=== PATIENT | female | born 1975 | race Caucasian/White ===

== ENCOUNTER 2017-04-20 11:20 | Emergency (ER) | payer BC, OTHER ==
--- OUTSIDE RECORDS SUMMARY | 2017-04-20 11:50 | XMS REPORT | Continuity of Care Document ---
:1975 Author Organization [employer] [place] [address] Care Team Providers Name Role Phone Roxanna Zabala Primary Care Provider [phone] Source Comments This disclosure is being made pursuant to the [employer] program and maynot contain all information available regarding this patient.[employer] Active Allergies and Adverse Reactions Not on File Current Medications Be aware that medications may not be up to date as of this document. Alwaysverify current medications with the patient. Not on file Active Problems Not on file Immunizations Name Dates Previously Given Next Due Influenza Split 09/25/2009,09/19/2009,08/01/2009 Social History Tobacco Use Types Packs/Day Years Used Date Never Assessed Plan of Care Health Maintenance Due Date Last Done Comments Tetanus/Pertussis (1 - Tdap) 1996 Pap Smear 1998 Influenza Immunization (#1) 2016 09/25/2009, 09/19/2009, 08/01/2009 Results from Last 3 Months Not on file
[2017-04-20 11:58] LABS: Hematocrit 39.7 % (37.0-47.0); Hemoglobin 12.7 gm/dL (12.5-16.0); Mean Cell Volume 83.8 fl (78-100); Mean Corpuscular Hemoglobin 26.8 pg (27-31); Platelet Count 258 K/mm3 (150-450); Red Blood Count 4.74 M/mm3 (4.2-5.4); Red Cell Distribution Width 14.5 % (11.5-14.0); Total Cells Counted 100
--- NOTE | 2017-04-20 12:01 | ERNOTE ---
Medical Problem HPI - Narrative Date of Service: 04/20/17 - General Chief Complaint: General Assessment Time Seen by Provider: 04/20/17 11:39 Source: patient, family, other - [employer]ER report Exam Limitations: no limitations - Immun/Allergies/Home Medications Immunizations: IMMUNIZATION HX Immunizations Up to Date Yes History of Influenza Vaccine No Hx Pneumococcal Vaccination No Allergies/Adverse Reactions: Allergies No Known Allergies Allergy (Unverified 04/20/17 11:25) Home Medications: HOME MEDICATIONS Iron 04/20/17 [Last Taken Unknown] Probiotic 04/20/17 [Last Taken Unknown] Vitamin D 04/20/17 [Last Taken Unknown] - History of Present History Narrative: Pt. comes in with c/o weakness and fatigue for over a month that she has sought treatment from her PCP for and was diagnosed with iron deficient anemia and vitamin D deficiency and has been on a supplement without relief but was told that her iron stores and blood were low and red cells were six. Pt. sought care from the [facility] just prior to arrival and was sent here as the SCHOOL LEADER there felt that she may have a dangerous anemia. Pt. states that her last period was last week and it was normal for her and was not especially long or heavy. Pt. has some chronic muscle aches but denies any new pain. Pt. denies any recent illness exposure or injury. Review of Systems - Review of Systems Constitutional: Present: weakness, fatigue, malaise, decreased activity level. Absent: fever, chills, weight loss EYE: Present: no symptoms reported ENT: Present: no symptoms reported Respiratory: Present: no symptoms reported. Absent: shortness of breath, cough , wheezing Cardiology: Present: no symptoms reported. Absent: chest pain Gastrointestinal/Abdominal: Present: no symptoms reported. Absent: nausea, vomiting, diarrhea, abdominal pain Genitourinary: Present: no symptoms reported Musculoskeletal: Present: muscle pain, joint pain. Absent: back pain, neck pain Skin: Present: no symptoms reported. Absent: dryness, lesions, lumps, change in color, change in hair/nails Neurological: Present: weakness - generalized. Absent: headache, dizziness/ light-headedness All Other Systems: All systems neg except as marked - Patient's Past Medical History Patient History - Medical: Anemia Patient History - Cardiac/Respiratory: Other Patient History - Cancer: No Hx of Cancer Patient History - Surgical Procedures: Patient History - Other: None LMP (females 10-50): now - Social History Living Situations: home Abuse History: No History of abuse Psych History: No pertinent hx Smoking Status: Never smoker Alcohol Use: none Drug Use: none - Immunizations Immunizations Up to Date: Yes Hx Pneumococcal Vaccination: No History of Influenza Vaccine: No Physical Exam - Physical Exam General Appearance: Present: wd/wn, alert, no apparent distress Eye Exam: Normal inspection: bilateral, PERRL: bilateral, EOMI: bilateral Ears, Nose, Throat: Present: normal ENT inspection, normal pharynx Neck: Present: normal inspection, nontender. Absent: lymphadenopathy (R), lymphadenopathy (L) Respiratory: Present: no respiratory distress, normal breath sounds, no accessory muscle use, chest nontender, lungs clear Cardiovascular/Chest: Present: regular rate, rhythm, no murmur, normal peripheral pulses Gastrointestinal/Abdominal: Present: normal bowel sounds, nontender, nondistended, soft, no organomegaly Back Exam: Present: normal inspection, normal range of motion, no CVA tenderness , no vertebral tenderness Extremity Exam: Present: normal inspection, non-tender, normal range of motion, no edema Neurological Exam: Present: alert, oriented, no motor/sensory deficits, other - flat affect Skin Exam: Present: normal color, warm/dry. Absent: pallor, skin rash ED Progress - Date and Time Seen: Date and Time: 04/20/17 15:36 Discussed pt. nutrition at length as I feel that pt. is malnutritioned from either organic or aquired source. Also feel that pt. also has some element of depression and vasomotor dysfunction. Pt. also could have arrythmia however unlikely but will order holter monitor for pt. and have her follow up with Dr Vasquez on which the nurse has made this appointment. - Results and Orders Patient's Lab Results:: I have reviewed the patient's lab results. - Vital Signs Patient's Vital Signs:: I have reviewed the patient's vital signs. Vital Signs: Vital Signs 04/20/17 11:25 Temperature 37.4 C Pulse Rate 89 Respiratory 18 Rate Blood Pressure 113/74 O2 Sat by Pulse 100 Oximetry - EKG EKG: other - SR no acute EKG read: Reviewed by me EKG Comments: Interpreted by Dr Schmitt - Progress/Reassessment Chief Complaint: General Assessment Progress:: Unchanged Departure - Departure Clinical Impression: Vitamin D deficiency, Iron deficiency Fatigue Qualifiers: Fatigue type: chronic, unspecified Qualified Code(s): R53.82 - Chronic fatigue , unspecified Hypothyroid Qualifiers: Hypothyroidism type: unspecified Qualified Code(s): E03.9 - Hypothyroidism, unspecified Arrhythmia Qualifiers: Arrhythmia type: unspecified cardiac arrhythmia Qualified Code(s): I49.9 - Cardiac arrhythmia, unspecified Disposition: Home self-care Condition: Good Instructions: Fatigue, Hypothyroidism, Vitamin D Deficiency, Ferritin Test, Iron Level and Total Iron-Binding Capacity Tests, Palpitations, [id number], Iron-Rich Diet, Cardiac Event Monitoring, Iron Deficiency Anemia, Adult, Easy-to -Read Additional Instructions: Please follow up with Dr Vasquez at 1030 on Thursdayapril 20. Please continue iron and vitamin D Referrals: Heriberto Vasquez MD [Staff Physician] -
[2017-04-20 12:04] LABS: Urine Bilirubin Negative (NEGATIVE); Urine Blood 25 /ul (NEGATIVE); Urine Ketone Negative (NEGATIVE); Urine Nitrite Negative (NEGATIVE); Urine Protein Negative (NEGATIVE); Urine Specific Gravity <=1.005 SP.GR. (1.005-1.010); Urine Urobilinogen Normal (NORMAL)
[2017-04-20 12:06] LABS: Eosinophil 2 % (0-3); Hypochromia Trace; Lymphocyte 25 % (20-51); Monocyte 10 % (0-9); Neutrophil 63 % (42-75); Neutrophil # 2.5 K/mm3 (1.3-6.0); Platelet Estimate Normal (NORMAL)
[2017-04-20 12:08] LABS: Prothrombin Time (Patient) 10.3 Seconds (9.4-11.4)
[2017-04-20 12:13] LABS: Urine Appearance Clear; Urine Bacteria None Seen; Urine Color Pale Yellow; Urine RBC 0-5 /hpf (0-5); Urine WBC None Seen /hpf (0-5)
[2017-04-20 12:15] LABS: INR 0.99 INR (0.90-1.10)
[2017-04-20 12:27] LABS: ALT 40 U/L (19-67); AST 32 U/L (0-48); Albumin * 4.2 gm/dl (3.4-5.0); Alkaline Phosphatase * 57 U/L (50-170); Anion Gap 12.2 mmol/L (6.8-13.8); Bilirubin, Total 0.5 mg/dL (0.0-1.1); Blood Urea Nitrogen 11 mg/dL (3-23); Ca. Corrected For Albumin 8.9 mg/dL (8.4-10.2); Calcium * 9.4 mg/dL (7.9-10.9); Carbon Dioxide 30.1 mmol/L (24-32.6); Chloride 104 mmol/L (97-106); Glucose * 106 mg/dL (70-110); Potassium 4.3 mmol/L (3.4-4.6); Sodium 142 mmol/L (132-142); TSH * 4.078 uIU/mL (0.358-3.74); Total Protein 8.1 gm/dL (6.2-8.2); Troponin I Less than 0.017 ng/ml (0.00-0.10)
[2017-04-20 15:00] VITALS: BP 118/73
== END 2017-04-20 14:25 | disposition home or self-care (01) ==
LOC: ER 11:20
DX: E55.9 Vitamin D deficiency, unspecified (principal); E61.1 Iron deficiency; R53.82 Chronic fatigue, unspecified; E03.9 Hypothyroidism, unspecified; I49.9 Cardiac arrhythmia, unspecified

== ENCOUNTER 2019-11-02 16:51 | Observation (INO) ==
[2019-11-02] MEDS ORDERED: KETOROLAC TROMETHAMINE 30 MG/ML VIAL IV ONE (17:12)
[2019-11-02] MEDS ORDERED: DIATRIZOATE MEGLUMINE, SODIUM 30 ML BTL PO ONE (17:15)
--- NOTE | 2019-11-02 17:23 | ERNOTE ---
Abdominal HPI - Narrative Date of Service: 11/02/19 - General Chief Complaint: Abdominal Pain Time Seen by Provider: 11/02/19 17:08 Source: patient Exam Limitations: no limitations - Immun/Allergies/Home Medications Immunizatons: IMMUNIZATION HX Immunizations Up to Date Yes History of Influenza Vaccine No Hx Pneumococcal Vaccination No Allergies/Adverse Reactions: Allergies adhesive Adverse Reaction (Mild, Verified 10/19/19 07:22) BANDAIDS CAUSE RASH Home Medications: HOME MEDICATIONS Ferrous Sulfate [Iron] 325 mg PO DAILY 12/15/17 [Last Taken 10/18/19] Multivitamins [Multivitamin Crsytal] 1 cap PO DAILY 12/15/17 [Last Taken Unknown] Kiron-3/Dha/Epa/Fish Oil [Fish Oil 500 mg Softgel] 1 ea PO DAILY 12/15/17 [Last Taken Unknown] pyridoxine (vitamin B6) 250 mg tablet 250 mg PO DAILY 08/15/19 [Last Taken 10/18/19] Ascorbic Acid [Vitamin C] 1,000 mg PO DAILY 10/19/19 [Last Taken 10/18/19] Calcium Carbonate [Calcium] 500 mg PO DAILY 10/19/19 [Last Taken Unknown] Estradiol [Climara] 0.1 mg TD Q7D 28 Days #4 patch.tdwk 10/19/19 [Last Taken Unknown] Ibuprofen [Motrin] 200 - 800 mg PO Q6H PRN #100 tab 10/19/19 [Last Taken Unknown] Loratadine [Allergy Relief] 10 mg PO DAILY PRN 10/19/19 [Last Taken 10/18/19] Thyroid,Pork [Nature-Throid] 32.5 mg PO BID 10/19/19 [Last Taken 10/18/19] guaiFENesin [Guaifenesin ER] 600 mg PO BID PRN 10/19/19 [Last Taken 10/18/19] Amox Tr/Potassium Clavulanate [Augmentin 875-125 Tablet] 875 mg PO Q12H #20 tab 10/31/19 [Last Taken Unknown] - Pain Score Pain Score #1 Pain Score: 8 Abdominal Pain Onset Location: other - pelvic Pain Radiation: no radiation - History of Present Illness Narrative: The patient is a 44 year old female who presents for pelvic pain which has been present for several day with worsening pain today. There are associated symptoms of fever, chills, diaphoresis and nausea. The patient reports pelvic pain, 8/10. There are no alleviating factors. There are aggravating factors of activity. Previous treatments have included: current treatment with Augmentin without improvement. The past medical history includes: anemia, GERD, IBS and endometriosis. The social history is negative. The patient has had no ill contacts. Patient was recently seen in ER with dx of abscess near vaginal cuff. Patient was treated with antibiotics after consult with and was to follow up with on Thursday. Review of Systems - Review of Systems Constitutional: Present: fever, chills, diaphoresis, fatigue EYE: Present: no symptoms reported ENT: Present: no symptoms reported. Absent: ear pain, nasal drainage, sore throat Respiratory: Present: no symptoms reported. Absent: shortness of breath, cough Cardiology: Present: no symptoms reported. Absent: chest pain Gastrointestinal/Abdominal: Present: nausea, abdominal pain. Absent: vomiting, diarrhea Genitourinary: Absent: dysuria, discharge Musculoskeletal: Present: no symptoms reported Skin: Present: no symptoms reported. Absent: rash All Other Systems: All systems neg except as marked Medical History (Last Reviewed 11/02/19 @ 17:18 by RHONDA Jang) Cyst of breast, left, solitary (Acute) complex cyst at 6 o'clock found on mammogram and u/s on 09/29/19. Scheduled for biopsy mid September. Premenstrual syndrome (Acute) Dysmenorrhea (Acute) Ovarian cyst (Acute) suspicious for dermoid Anemia Onset Date: 01/03/13 Body piercing Onset Date: Unknown GERD (gastroesophageal reflux disease) Onset Date: Unknown Irritable bowel syndrome (IBS) Onset Date: Unknown Seasonal allergies Onset Date: Unknown Adenomyosis Onset Date: 10/19/19 Breast lump in female Onset Date: ~2002 Mammogram showed benign results Endometriosis Onset Date: 10/19/19 left ovary Heart murmur Onset Date: Unknown as a child; resolved Leiomyoma Onset Date: 10/19/19 Mononucleosis Onset Date: ~2003 Surgical History: Surgical History (Last Reviewed 11/02/19 @ 17:18 by RHONDA Jang) History of endometrial biopsy Onset Date: 10/06/19 No atypia or malignant neoplasia identified. Dermoid cyst Onset Date: ~12/2017 right-removed H/O bilateral salpingectomy Onset Date: ~12/2017 Pt unsure if bilateral or unilateral History of cystoscopy Onset Date: 10/19/19 History of laparoscopic-assisted vaginal hysterectomy Onset Date: 10/19/19 History of left salpingo-oophorectomy Onset Date: 10/19/19 Hx of ovarian cystectomy Onset Date: ~12/2017 Right Previous section Onset Date: 06/18/00 Failure to descend [place] teeth extracted Onset Date: Unknown high school Family History: Family History (Last Reviewed 11/02/19 @ 17:18 by RHONDA Jang) Mother Seizures Diabetes History of brain surgery Cancer endometrial Father Hypertension Sister History of gestational diabetes Grandmother Diabetes Cancer Breast Grandfather Cancer prostate & bone Grandfather Heart disease Aunt Cancer Breast Thyroid disease Social History: (Last Reviewed 11/02/19 @ 17:18 by RHONDA Jang) Social History: adopted: No assisted: No Marital status: household members: spouse, children number of children: 4 current occupational status: other current occupational exposures/hazards: No Highest education level completed: high school graduate Service: No Tobacco: Smoking Status: Never smoker Alcohol: alcohol intake: never Substance Use: substance use type: does not use Dietary Habits: caffeine: Yes caffeine comment: 1/day Exercise: frequency: 1-2 times per week Physical Exam - Physical Exam General Appearance: Present: wd/wn, alert, moderate distress Head Exam: Present: normal inspection Eye Exam: Normal inspection: bilateral Neck: Present: normal inspection Respiratory: Present: no respiratory distress, normal breath sounds, no accessory muscle use, lungs clear Cardiovascular/Chest: Present: no murmur, tachycardia Gastrointestinal/Abdominal: Present: normal bowel sounds, nondistended, soft, no organomegaly, tenderness - LLQ and suprapubic, moderate, guarding - suprapubic. Absent: mass Neurological Exam: Present: alert, oriented, normal mood/affect, no motor/sensory deficits Skin Exam: Present: normal color, diaphoresis Progress - Date and Time Seen: Date and Time: 11/02/19 17:23 contacted regarding patient condition and representation to ER, instructed to repeat CT. Patient informed and will proceed with testing. 11/02/19 20:[address] with , admit for observation for IV atb. Revie wed plan of care with patient and agrees to plan. - Results and Orders Patient's Lab Results:: I have reviewed the patient's lab results. - Vital Signs Patient's Vital Signs:: I have reviewed the patient's vital signs. Vital Signs: Vital Signs 11/02/19 16:59 Temperature 37.0 C Pulse Rate 105 H Respiratory Rate 18 Blood Pressure 123/72 O2 Sat by Pulse Oximetry 98 - CT/Ultrasound CT/Ultrasound Narrative: IMPRESSION: 1. Persistence of previously noted single crescentic fluid collection versus 2 separate fluid collections in the pelvis, closely associated with the vaginal cuff as discussed above and also discussed previously, suggestive of either hematomas versus abscesses. Right-sided fluid may be slightly larger. There is interval development of gas within the right-sided fluid collection as discussed above. Correlate clinically with recent instrumentation or pelvic exam. Otherwise, consider possible gas from infection/abscess, versus less likely but possible gas related to possible fistula with the adjacent GI tract. 2. There is symmetric excretion of contrast material from the kidneys, however the bladder and the distal ureteral segments are not opacified and therefore it would be difficult to exclude potential ureteral injury. If there is a clinical concern for possible ureteral injury, consider urology consultation. 3. Additional comments and details are as above. Ordering provider RHONDA Jang was informed regarding the above results by telephone on 11/02/2019 8:36 PM. - Progress/Reassessment Chief Complaint: Abdominal Pain Progress:: Improved - slightly, 5-6/10 after Toradol and position Departure Clinical Impression: Failure of outpatient treatment, Postoperative abscess - Departure Disposition: Still a patient Condition: Stable
[2019-11-02 17:24] LABS: Hematocrit 39.7 % (37.0-47.0); Hemoglobin 13.4 gm/dL (12.5-16.0); Mean Corpuscular Hemoglobin 29.7 pg (27-31); Mean Corpuscular Hgb Conc 33.8 g/dl (32-36); Mean Platelet Volume 9.5 fl (8-12.5); Neutrophil # 9.1 K/mm3 (1.3-6.0); Neutrophil % 82.8 % (42-75.0); Platelet Count 286 K/mm3 (150-450); Red Blood Count 4.51 M/mm3 (4.2-5.4); Red Cell Distribution Width 13.4 % (11.5-14.0)
[2019-11-02] MEDS ORDERED: ONDANSETRON HCL/PF 2 MG/ML VIAL IV ONE (17:25)
[2019-11-02 17:36] LABS: Albumin * 3.6 gm/dl (3.4-5.0); Anion Gap 11.9 mmol/L (6.8-13.8); BUN/Creatinine Ratio 11.3 (9.0-21.6); Bilirubin, Total 0.3 mg/dL (0.0-1.1); CRP 4.6 mg/dL (0.0-0.9); Ca. Corrected For Albumin 9.2 mg/dL (8.4-10.2); Calcium * 9.2 mg/dL (7.9-10.9); Carbon Dioxide 29.2 mmol/L (24-32.6); Potassium 4.1 mmol/L (3.4-4.6)
[2019-11-02 19:07] LABS: Urine Bilirubin Negative (NEGATIVE); Urine Blood 250 /ul (NEGATIVE); Urine Ketone 15 mg/dL (NEGATIVE); Urine Nitrite Negative (NEGATIVE); Urine Protein 15 mg/dL (NEGATIVE); Urine Urobilinogen Normal (NORMAL); Urine pH 6.5 pH (5.0-7.0)
[2019-11-02 19:21] LABS: Urine Appearance Cloudy (CLEAR); Urine Bacteria 3+; Urine Color Yellow; Urine Mucus Few - 1+; Urine RBC 0-5 /hpf (0-5); Urine Renal Epithelial Cell Few - 1+ /hpf; Urine WBC 25-50 /hpf (0-5)
[2019-11-02] MEDS ORDERED: MORPHINE SULFATE 2 MG/ML DISP.SYRIN IV PRN (21:47)
[2019-11-02] MEDS ORDERED: ONDANSETRON 4 MG TAB.RAPDIS PO PRN (21:47)
[2019-11-02] MEDS: HYDROcodone/ACETAMINOPHEN 1 EACH TABLET PO PRN (22:30)
[2019-11-02] MEDS: RINGER'S SOLUTION,LACTATED 1,000 ML IV PRN (22:31)
[2019-11-02] MEDS: AMPICILLIN SODIUM 2,000 MG in NORMAL SALINE 100 ML IV SCH (22:56)
[2019-11-02] MEDS: CLINDAMYCIN PHOSPHATE 900 MG in DEXTROSE 5 % IN WATER 100 ML IV SCH ×2 (23:32)
[2019-11-03] MEDS: GENTAMICIN SULFATE 100 MG in DEXTROSE 5 % IN WATER 100 ML IV SCH ×8 (00:07→23:13)
[2019-11-03] MEDS: HYDROcodone/ACETAMINOPHEN 1 EACH TABLET PO PRN (01:29)
[2019-11-03] MEDS: AMPICILLIN SODIUM 2,000 MG in NORMAL SALINE 100 ML IV SCH ×4 (03:49→22:35)
[2019-11-03] MEDS: CLINDAMYCIN PHOSPHATE 900 MG in DEXTROSE 5 % IN WATER 100 ML IV SCH ×6 (05:46→21:52)
[2019-11-03] MEDS: RINGER'S SOLUTION,LACTATED 1,000 ML IV PRN (05:58)
--- NOTE | 2019-11-03 08:46 | HP ---
Chief Complaint - Chief Complaint Date of Service: 11/03/19 Time of Service: 08:46 Chief Complaint: Abdominal pain History of Present Illness: 44 year old s/p LAVH, left oophorectomy and cystoscopy on 10/19/2019 so she is now approximately 2 weeks post-op. She initially reported abdominal pain on 10/29/2019 and a low grade temperature of 99 Fahrenheit. At that time the patient was instructed to present to her nearest emergency department as she was out of town. She presented to the ED and was diagnosed with a UTI. She was given an Rx for levaquin and the patient did not feel comfortable taking levaquin because she has a history of several family members that have had adverse reactions to levaquin. The patient was then switched to macrobid 100mg PO BID for 7 days. The patient then called back on Thursday10/31/2019 still having pain and with persistent low grade temperatures. She was again instructed to present to the emergency department. At that time she had a CBC that showed a WBC count of 12.5 and also elevated CRP. Due to these findings a CT A/P was ordered that showed a hematoma versus pelvic abscess. The patient was afebrile in the emergency department. The patient was given a dose of IV Rocephin in the emergency department. She was discharged on a 10 day course of augmentin and she was advised to stop her macrobid. On 11/02/19 the patient called with now increasing abdominal pain, a higher low grade temperature of 100, and also chills. Again she was advised to present to the emergency department and the CT abdomen/pelvis was repeated to rule out an occult bowel injury and to follow-up the size of the hematomas versus fluid collections. The patient's CBC and CRP were decreased, she was afebrile, but the CT showed a potential increase in one of the fluid collections. The patient was then admitted since she failed outpatient antibiotic therapy. The patient's abdominal pain ranged from a 6-8/10 yesterday and this morning her abdominal pain is 1/10. She is afebrile. She denies nausea and diaphoresis. Medical History (Last Reviewed 11/03/19 @ 09:07 by Pao Moncada MD) Cyst of breast, left, solitary (Acute) complex cyst at 6 o'clock found on mammogram and u/s on 10/31/19. Scheduled for biopsy mid September. Premenstrual syndrome (Acute) Dysmenorrhea (Acute) Ovarian cyst (Acute) suspicious for dermoid Anemia Onset Date: 01/03/13 Body piercing Onset Date: Unknown GERD (gastroesophageal reflux disease) Onset Date: Unknown Irritable bowel syndrome (IBS) Onset Date: Unknown Seasonal allergies Onset Date: Unknown Adenomyosis Onset Date: 10/19/19 Breast lump in female Onset Date: ~2002 Mammogram showed benign results Endometriosis Onset Date: 10/19/19 left ovary Heart murmur Onset Date: Unknown as a child; resolved Leiomyoma Onset Date: 10/19/19 Mononucleosis Onset Date: ~2003 Surgical History: Surgical History (Last Reviewed 11/03/19 @ 09:07 by Pao Moncada MD) History of endometrial biopsy Onset Date: 10/06/19 No atypia or malignant neoplasia identified. Dermoid cyst Onset Date: ~12/2017 right-removed H/O bilateral salpingectomy Onset Date: ~12/2017 Pt unsure if bilateral or unilateral History of cystoscopy Onset Date: 10/19/19 History of laparoscopic-assisted vaginal hysterectomy Onset Date: 10/19/19 History of left salpingo-oophorectomy Onset Date: 10/19/19 Hx of ovarian cystectomy Onset Date: ~12/2017 Right Previous section Onset Date: 06/18/00 Failure to descend [place] teeth extracted Onset Date: Unknown high school Family History: Family History (Last Reviewed 11/03/19 @ 09:07 by Pao Moncada MD) Mother Seizures Diabetes History of brain surgery Cancer endometrial Father Hypertension Sister History of gestational diabetes Grandmother Diabetes Cancer Breast Grandfather Cancer prostate & bone Grandfather Heart disease Aunt Cancer Breast Thyroid disease Social History: (Last Reviewed 11/03/19 @ 09:07 by Pao Moncada MD) Social History: adopted: No mcfp: No Marital status: household members: spouse, children number of children: 4 current occupational status: other current occupational exposures/hazards: No Highest education level completed: high school graduate Service: No Tobacco: Smoking Status: Never smoker Alcohol: alcohol intake: never Substance Use: substance use type: does not use Dietary Habits: caffeine: Yes caffeine comment: 1/day Exercise: frequency: 1-2 times per week Review Of Systems (GEN) - Review of Systems Generalized/Overall Review: Absent: Chills, Fever, Diaphoresis EENTM: Present: No Symptoms Reported Respiratory: Present: No Symptoms Reported Cardiac: Present: No Symptoms Reported Abdominal: Absent: Nausea, Vomiting, Abdominal Pain, Diarrhea Genitourinary: Present: No Symptoms Reported Musculoskeletal: Present: No Symptoms Reported Neurological: Present: No Symptoms Reported Skin: Absent: Change in Color Endocrine: Absent: [place] Misc: All systems neg except as marked Immunizations: IMMUNIZATION HX Immunizations Up to Date Yes History of Influenza Vaccine No Hx Pneumococcal Vaccination No Allergies/Adverse Reactions: Allergies Allergy/AdvReac Type Severity Reaction Status Date / Time adhesive AdvReac Mild BANDAIDS Verified 11/02/19 21:47 CAUSE RASH Home Medications: HOME MEDICATIONS Ferrous Sulfate [Iron] 325 mg PO DAILY 12/15/17 [Last Taken 10/18/19] Multivitamins [Multivitamin Crystal] 1 cap PO DAILY 12/15/17 [Last Taken Unknown] [place]-3/Dha/Epa/Fish Oil [Fish Oil 500 mg Softgel] 1 ea PO DAILY 12/15/17 [Last Taken Unknown] pyridoxine (vitamin B6) 250 mg tablet 250 mg PO DAILY 08/15/19 [Last Taken 10/18/19] Ascorbic Acid [Vitamin C] 1,000 mg PO DAILY 10/19/19 [Last Taken 10/18/19] Calcium Carbonate [Calcium] 500 mg PO DAILY 10/19/19 [Last Taken Unknown] Estradiol [Climara] 0.1 mg TD Q7D 28 Days #4 patch.tdwk 10/19/19 [Last Taken Unknown] Ibuprofen [Motrin] 200 - 800 mg PO Q6H PRN #100 tab 10/19/19 [Last Taken Unknown] Loratadine [Allergy Relief] 10 mg PO DAILY PRN 10/19/19 [Last Taken 10/18/19] Thyroid,Pork [Nature-Throid] 32.5 mg PO BID 10/19/19 [Last Taken 10/18/19] guaiFENesin [Guaifenesin ER] 600 mg PO BID PRN 10/19/19 [Last Taken 10/18/19] Amox Tr/Potassium Clavulanate [Augmentin 875-125 Tablet] 875 mg PO Q12H #20 tab 10/31/19 [Last Taken Unknown] Exam - Exam Vital Signs: Vital Signs - Last Taken Temp 37.1 C 11/03/19 06:00 Pulse 84 11/03/19 06:00 Resp 16 11/03/19 06:00 BP 92/48 11/03/19 06:00 Pulse Ox 98 11/03/19 06:00 Constitutional: Present: Alert, Oriented x3, Cooperative, No distress ENT Exam: Present: hearing grossly normal Respiratory: Present: lungs clear, normal breath sounds Cardiovascular/Chest: Present: regular rate, rhythm, no murmur Abdomen: Present: soft, nontender, nondistended Extremity: Present: non-tender, no calf tenderness Skin Exam: Present: normal color, warm/dry, no cyanosis Appearance: Present: appropriate appearance Eye contact: Present: cooperative Thoughts: Present: normal thought pattern Diagnostic Studies: Abnormal Lab Results 11/02/19 11/02/19 11/02/19 Range/Units 17:15 17:15 18:44 WBC 11.0 H (4.0-10.5) K/mm3 Immature Gran # (Auto) 0.04 H (0.000-0.0310) K/mm3 Neutrophils % 82.8 H (42-75.0) % Lymphocytes % 9.3 L (20-51) % Neutrophils # 9.1 H (1.3-6.0) K/mm3 Lymphocytes # 1.02 L (1.5-3.5) k/mm3 C-Reactive Prot, Quant 4.6 H (0.0-0.9) mg/dL Urine Protein 15 H (NEGATIVE) mg/dL Urine Blood 250 H (NEGATIVE) /ul Ur Leukocyte Esterase 100 H (NEGATIVE) /ul Urine WBC 25-50 H (0-5) /hpf Ur Renal Epithelial Cell Few - 1+ H (NONE) /hpf Urine Bacteria 3+ H (NONE) Urine Mucus Few - 1+ H (NONE) Laboratory Results WBC 11.0 K/mm3 (4.0-10.5) H 11/02/19 17:15 RBC 4.51 M/mm3 (4.2-5.4) 11/02/19 17:15 Hgb 13.4 gm/dL (12.5-16.0) 11/02/19 17:15 Hct 39.7 % (37.0-47.0) 11/02/19 17:15 MCV 88.0 fl (78-100) 11/02/19 17:15 MCH 29.7 pg (27-31) 11/02/19 17:15 MCHC 33.8 g/dl (32-36) 11/02/19 17:15 RDW 13.4 % (11.5-14.0) 11/02/19 17:15 Plt Count 286 K/mm3 (150-450) 11/02/19 17:15 MPV 9.5 fl (8-12.5) 11/02/19 17:15 Immature Gran % (Auto) 0.40 % (0.001-0.429) 11/02/19 17:15 Immature Gran # (Auto) 0.04 K/mm3 (0.000-0.0310) H 11/02/19 17:15 Neutrophils % 82.8 % (42-75.0) H 11/02/19 17:15 Lymphocytes % 9.3 % (20-51) L 11/02/19 17:15 Monocytes % 6.6 % (0.0-9) 11/02/19 17:15 Eosinophils % 0.7 % (0.0-3.0) 11/02/19 17:15 Basophils % 0.2 % (0.0-1.0) 11/02/19 17:15 Nucleated RBC % 0.0 k/mm3 (0-1) 11/02/19 17:15 Neutrophils # 9.1 K/mm3 (1.3-6.0) H 11/02/19 17:15 Lymphocytes # 1.02 k/mm3 (1.5-3.5) L 11/02/19 17:15 Monocytes # 0.7 k/mm3 (0.0-1.0) 11/02/19 17:15 Eosinophils # 0.1 k/mm3 (0.0-0.7) 11/02/19 17:15 Absolute Basophils 0.0 k/mm3 (0.0-0.1) 11/02/19 17:15 Sodium 138 mmol/L (132-142) 11/02/19 17:15 Plasma Sodium 138 mmol/L (130-142) 11/02/19 17:15 Potassium 4.1 mmol/L (3.4-4.6) 11/02/19 17:15 Chloride 101 mmol/L (97-106) 11/02/19 17:15 Carbon Dioxide 29.2 mmol/L (24-32.6) 11/02/19 17:15 Anion Gap 11.9 mmol/L (6.8-13.8) 11/02/19 17:15 BUN 8 mg/dL (3-23) 11/02/19 17:15 Creatinine 0.71 mg/dL (0.4-1.4) 11/02/19 17:15 Est GFR (Non-Af Amer) 96 mL/min (60-130) 11/02/19 17:15 BUN/Creatinine Ratio 11.3 (9.0-21.6) 11/02/19 17:15 Random Glucose 102 mg/dL (70-110) 11/02/19 17:15 Lactic Acid, Venous 0.7 mmol/L (0.4-2.0) 11/02/19 17:15 Calcium 9.2 mg/dL (7.9-10.9) 11/02/19 17:15 Calcium Adj for Albumin 9.2 mg/dL (8.4-10.2) 11/02/19 17:15 Total Bilirubin 0.3 mg/dL (0.0-1.1) 11/02/19 17:15 AST 17 U/L (0-48) 11/02/19 17:15 ALT 27 U/L (19-67) 11/02/19 17:15 Alkaline Phosphatase 97 U/L (50-170) 11/02/19 17:15 C-Reactive Prot, Quant 4.6 mg/dL (0.0-0.9) H 11/02/19 17:15 Total Protein 8.0 gm/dL (6.2-8.2) 11/02/19 17:15 Albumin 3.6 gm/dl (3.4-5.0) 11/02/19 17:15 Urine Color Yellow 11/02/19 18:44 Urine Appearance Cloudy (CLEAR) 11/02/19 18:44 Urine pH 6.5 pH (5.0-7.0) 11/02/19 18:44 Ur Specific [place] 1.010 SP.GR. (1.005-1.010) 11/02/19 18:44 Urine Protein 15 mg/dL (NEGATIVE) H 11/02/19 18:44 Urine Glucose (UA) Negative mg/dL (NEGATIVE) 11/02/19 18:44 Urine Ketones 15 mg/dL (NEGATIVE) 11/02/19 18:44 Urine Blood 250 /ul (NEGATIVE) H 11/02/19 18:44 Urine Nitrate Negative (NEGATIVE) 11/02/19 18:44 Urine Bilirubin Negative mg/dl (NEGATIVE) 11/02/19 18:44 Prot Sulfosalicylic Acd 1+ mg/dL (0) 11/02/19 18:44 Urine Urobilinogen Normal EU/dl (NORMAL) 11/02/19 18:44 Ur Leukocyte Esterase 100 /ul (NEGATIVE) H 11/02/19 18:44 Urine RBC 0-5 /hpf (0-5) 11/02/19 18:44 Urine WBC 25-50 /hpf (0-5) H 11/02/19 18:44 Ur Epithelial Cells None seen /hpf (0-5) 11/02/19 18:44 Ur Renal Epithelial Cell Few - 1+ /hpf (NONE) H 11/02/19 18:44 Urine Bacteria 3+ (NONE) H 11/02/19 18:44 Urine Mucus Few - 1+ (NONE) H 11/02/19 18:44 Urine Culture Comments Culture to follow 11/02/19 18:44 Assessment/Plan - Narrative Narrative: 44 year old approximately 2 weeks postoperative from a hysterectomy with a pelvic abscess The patient is on triple antibiotics: ampicillin/gentamicin/clindamycin. Afebrile. Abdominal pain improved. Continue IV antibiotics for 24 hours. If the patient continues to be improved will be discharged on antibiotics for 14 days. If no improvement will consider drainage of vaginal cuff abscess. Cultures not obtained as these are polymicrobial infections and cultures are not helpful Probiotics ordered per patient request Plan of care discussed with the patient and her spouse - Assessment/Plan (1) Failure of outpatient treatment Problem: Acute (2) Postoperative abscess Problem: Acute
[2019-11-03] MEDS: SACCHAROMYCES BOULARDII 250 MG CAPSULE PO SCH ×2 (09:51→21:51)
[2019-11-03] MEDS ORDERED: ACETAMINOPHEN 500 MG TABLET PO PRN (16:52)
[2019-11-04] MEDS: AMPICILLIN SODIUM 2,000 MG in NORMAL SALINE 100 ML IV SCH ×3 (03:19→16:03)
[2019-11-04] MEDS: CLINDAMYCIN PHOSPHATE 900 MG in DEXTROSE 5 % IN WATER 100 ML IV SCH ×4 (05:59→14:35)
[2019-11-04] MEDS: GENTAMICIN SULFATE 100 MG in DEXTROSE 5 % IN WATER 100 ML IV SCH ×4 (06:48→16:03)
[2019-11-04] MEDS: SACCHAROMYCES BOULARDII 250 MG CAPSULE PO SCH (08:56)
--- NOTE | 2019-11-04 13:29 | PN ---
Subjective - Date and Time Seen Date: 11/04/19 Time: 13:20 Subjective Narrative: Patient states she has been feeling worse this past few days than she did the first few days after surgery in general. She has had a couple episodes of the RLQ pelvic pain over the past 24 hours which she rates as 8/10, but has not required narcotics (even refused last pm). She currently has minimal pain, no N/V/F/C. No pain with bowel or bladder functions today, only a pressure/pulling sensation when bladder full. Objective - Review of Systems Generalized/Overall Review: Reports: Weakness, Fatigue EENTM: Reports: No Symptoms Reported Respiratory: Reports: No Symptoms Reported Cardiac: Reports: No Symptoms Reported Abdominal: Reports: Other - See above Genitourinary Symptoms: Reports: Other - Minor vaginal spotting. Denies foul smelling or purulent d/c, no vaginal pain. Musculoskeletal Complaints: Reports: No Symptoms Reported Neurological: Reports: Headache - a couple times over the past 2 days - non at present. Skin: Reports: No Symptoms Reported Endocrine: Reports: No Symptoms Reported - Vitals Vitals: Last Vital Signs Temp 37.1 C 11/04/19 11:00 Pulse 73 11/04/19 11:00 Resp 12 11/04/19 11:00 BP 110/50 11/04/19 11:00 Pulse Ox 97 11/04/19 11:00 - Exam Constitutional: Present: Alert, Oriented x3, Cooperative, No distress Breasts: Present: Exam deferred Respiratory: Present: no respiratory distress Cardiovascular/Chest: Present: regular rate, rhythm, no edema Abdomen: Present: Normal bowel sounds, soft, nondistended, no rebound tenderness, tender - Mild RLQ tenderness with deep palpation /Rectal: Present: Other - vagina pink, moist, NT, no erythema, good support. Cuff NT, intact, no erythema.. Absent: discharge Extremity: Present: non-tender, no pedal edema, no calf tenderness Skin Exam: Present: normal color, warm/dry, no cyanosis Lymphatic: Present: no adenopathy Neurologic: Present: normal mood/affect, oriented x 3 Appearance: Present: appropriate appearance, appropriate insight, no memory impairment Eye contact: Present: cooperative, good eye contact, normal speech Thoughts: Present: normal mood /affect, other - Tends to dwell on negative and repeat the same/similar questions over frequently. Assessment/Plan - Problems/Diagnosis (1) Postoperative lower abdominal pain Problem: Resolved Narrative: Intermittent waves of right lower quadrant pelvic pain probably due to movement of bowel and/or bladder irritating vaginal cuff hematoma. Patient not requiring narcotic medication. Pain is well controlled with Tylenol and Motrin. Instructed patient and spouse on necessity of light activity, avoiding heavy lifting, or strenuous activity. Reiterated nothing in the vagina until 4-week checkup in office. (2) Postoperative hematoma involving genitourinary system following genitourinary procedure Problem: Acute Narrative: Successful drainage of vaginal cuff hematoma. We will DC IV antibiotics. Recheck CBC and discharge patient home on oral antibiotics as a precautionary measure after partially opening the vaginal cuff.
[2019-11-04 13:31] LABS: Hematocrit 35.9 % (37.0-47.0); Hemoglobin 12.3 gm/dL (12.5-16.0); Mean Cell Volume 88.2 fl (78-100); Mean Corpuscular Hemoglobin 30.2 pg (27-31); Mean Corpuscular Hgb Conc 34.3 g/dl (32-36); Mean Platelet Volume 9.6 fl (8-12.5); Neutrophil # 5.5 K/mm3 (1.3-6.0); Neutrophil % 76.4 % (42-75.0); Platelet Count 291 K/mm3 (150-450); Red Blood Count 4.07 M/mm3 (4.2-5.4); Red Cell Distribution Width 13.2 % (11.5-14.0); White Blood Count 7.2 K/mm3 (4.0-10.5)
--- NOTE | 2019-11-04 16:34 | PROC NOTE ---
ED Procedures - Incision and Drainage Progerss: DATE OF PROCEDURE: 11/04/2019 INDICATION: Vaginal cuff fluid collection noted on CT scan. PREOPERATIVE DIAGNOSIS: Vaginal cuff hematoma. POSTOPERATIVE DIAGNOSIS: [Same] PROCEDURE: Transvaginal drainage of vaginal cuff hematoma SURGEON: Monica Blas D.O. AGRICULTURAL RESEARCH TECHNOLOGIST: [None] ANESTHESIA: None ESTIMATED BLOOD LOSS: 2 mL FINDINGS:The vaginal epithelium and cuff was pink, nontender, with no odor or purulent drainage. There was scant blood in the vault. SPECIMEN(S): None TECHNIQUE: Patient was taken to the hospital office exam table where she was placed in dorsal lithotomy position. The vaginal cuff was visualized with a speculum with findings as noted above. The tip of Metzenbaum scissors was inserted approximately 1-2 cm into the vaginal cuff and gently spread on both the right and left side. Approximately 1-2 mL of bright red blood drained from the right side with less than 1 mL draining from the left side. Transvaginal ultrasound was then performed noting less than 1 cm of fluid collection above the vaginal vault on the right side. Minimal spotting was noted after opening the corners of the vaginal cuff. DISPOSITION: The patient tolerated the procedure well and was transferred back to her room in good condition.
--- NOTE | 2019-11-04 16:43 | PN ---
Subjective - Date and Time Seen Date: 11/04/19 Time: 16:40 Subjective Narrative: Patient doing well 5 hours after draining vaginal cuff hematoma. Denies nausea, vomiting, fever, chills, or pain. Objective - Vitals Vitals: Last Vital Signs Temp 37.1 C 11/04/19 11:00 Pulse 73 11/04/19 11:00 Resp 12 11/04/19 11:00 BP 110/50 11/04/19 11:00 Pulse Ox 97 11/04/19 11:00 - Abnormal Lab Findings Abnormal Lab Findings: Abnormal Lab Results 11/04/19 Range/Units 13:21 RBC 4.07 L (4.2-5.4) M/mm3 Hgb 12.3 L (12.5-16.0) gm/dL Hct 35.9 L (37.0-47.0) % Neutrophils % 76.4 H (42-75.0) % Lymphocytes % 13.1 L (20-51) % Lymphocytes # 0.94 L (1.5-3.5) k/mm3 - Exam Constitutional: Present: Alert, Oriented x3, Cooperative Abdomen: Present: soft, nondistended, no rebound tenderness Extremity: Present: no pedal edema, no calf tenderness Assessment/Plan Plan Narrative: We will discharge patient home on oral antibiotics as a preventative measure after opening the vaginal cuff. Patient instructed to call for return of abdominal pain, nausea, fever, chills, or any significant change in her condition. - Problems/Diagnosis (1) Postoperative lower abdominal pain Problem: Resolved (2) Postoperative hematoma involving genitourinary system following genitourinary procedure Problem: Acute
--- NOTE | 2019-11-04 16:46 | DS ---
(1) Postoperative lower abdominal pain Problem: Resolved (2) Postoperative hematoma involving genitourinary system following genitou rinary procedure Problem: Acute Date of Discharge:: 11/04/19 Description of Stay: Patient was admitted to the hospital for 23-hour observation and IV antibiotics for presumed post hysterectomy pelvic abscess. Patient had a mildly elevated white count of 11 with left shift. Patient never had a temperature above 99 C. She never had any vaginal odor or discharge other than scant bleeding. She received 4 doses of IV clindamycin, 5 doses of IV gentamicin, and 6 doses of IV ampicillin. She had 2 doses of [place] 5/325 upon admission but none since then. She tolerated regular diet, ambulated without difficulty, and exhibited no signs of acute abdomen throughout her hospital stay. After undergoing drainage of vag inal cuff hematoma patient was observed for several hours and discharged to home with instructions to call for signs or symptoms of acute abdomen or any significant change in her medical condition. CT scan showed a left pulmonary nodule which most likely was artifact. Radiology recommended a chest x-ray to assure no pulmonary lesion. Since patient already had a chest x-ray done at her ER visit several days ago, recommend follow-up with primary care provider to assure no lesion was seen on that chest x-ray. Procedures Performed: see notes below List Procedures: CT scan of abdomen and pelvis. Drainage of vaginal cuff hematoma with transvaginal ultrasound to confirm drainage. Results and Findings: Lab Pending Results 11/02/19 13:29: TSH 1.448 11/02/19 17:15: WBC 11.0 H, RBC 4.51, Hgb 13.4, Hct 39.7, MCV 88.0, MCH 29.7, MCHC 33.8, RDW 13.4, Plt Count 286, MPV 9.5, Immature Gran % (Auto) 0.40, Immature Gran # (Auto) 0.04 H, Neutrophils % 82.8 H, Lymphocytes % 9.3 L, Monocytes % 6.6, Eosinophils % 0.7, Basophils % 0.2, Nucleated RBC % 0.0, Neutrophils # 9.1 H, Lymphocytes # 1.02 L, Monocytes # 0.7, Eosinophils # 0.1, Absolute Basophils 0.0 11/02/19 17:15: Sodium 138, Plasma Sodium 138, Potassium 4.1, Chloride 101, Carbon Dioxide 29.2, Anion Gap 11.9, BUN 8, Creatinine 0.71, Est GFR (Non-Af Amer) 96, BUN/Creatinine Ratio 11.3, Random Glucose 102, Calcium 9.2, Calcium Adj for Albumin 9.2, Total Bilirubin 0.3, AST 17, ALT 27, Alkaline Phosphatase 97, C-Reactive Prot, Quant 4.6 H, Total Protein 8.0, Albumin 3.6 11/02/19 17:15: Lactic Acid, Venous 0.7 11/02/19 18:44: Urine Color Yellow, Urine Appearance Cloudy, Urine pH 6.5, Ur Specific [place] 1.010, Urine Protein 15 H, Urine Glucose (UA) Negative, Urine Ketones 15, Urine Blood 250 H, Urine Nitrate Negative, Urine Bilirubin Negative, Prot Sulfosalicylic Acd 1+, Urine Urobilinogen Normal, Ur Leukocyte Esterase 100 H, Urine RBC 0-5, Urine WBC 25-50 H, Ur Epithelial Cells None seen, Ur Renal Epithelial Cell Few - 1+ H, Urine Bacteria 3+ H, Urine Mucus Few - 1+ H, Urine Culture Comments Culture to follow 11/04/19 13:21: WBC 7.2 D, RBC 4.07 L, Hgb 12.3 L, Hct 35.9 L, MCV 88.2, MCH 30.2, MCHC 34.3, RDW 13.2, Plt Count 291, MPV 9.6, Immature Gran % (Auto) 0.10, Immature Gran # (Auto) 0.01, Neutrophils % 76.4 H, Lymphocytes % 13.1 L, Monocytes % 8.7, Eosinophils % 1.4, Basophils % 0.3, Nucleated RBC % 0.0, Neutrophils # 5.5, Lymphocytes # 0.94 L, Monocytes # 0.6, Eosinophils # 0.1, Absolute Basophils 0.0 Discharge Location: Home Disposition: Home self-care Condition: Good Face to Face Encounter completed per CMS Guidelines: Yes Discharge Activity: No Lifting, Other - No strenuous activity. No sexual activity or anything inserted in the vagina until after postoperative appointment. No baths until after postop appointment. Discharge Diet: General/regular food Additional Patient Instructions (free text): Call office on Thursday to assess condition. Keep postop appointment as scheduled. Prescriptions (Any new or edited meds): Sulfamethoxazole/Trimethoprim [Bactrim Ds] 1 tab PO BID #28 tab Transmission Status: Received by [facility] #[id number] metroNIDAZOLE [Flagyl] 500 mg PO Q12H 14 Days #28 tab Transmission Status: Received by [facility] #[id number] Complete Home Medications List: Complete Home Medication List: Ferrous Sulfate [Iron] 325 mg PO DAILY 12/15/17 Multivitamins [Multivitamin Crystal] 1 cap PO DAILY 12/15/17 [place]-3/Dha/Epa/Fish Oil [Fish Oil 500 mg Softgel] 1 ea PO DAILY 12/15/17 Calcium Carbonate [Calcium] 500 mg PO DAILY 10/19/19 Estradiol [Climara] 0.1 mg TD Q7D 28 Days #4 patch.tdwk 10/19/19 Ibuprofen [Motrin] 200 - 800 mg PO Q6H PRN #100 tab 10/19/19 Loratadine [Allergy Relief] 10 mg PO DAILY PRN 10/19/19 Thyroid,Pork [Nature-Throid] 32.5 mg PO BID 10/19/19 Sulfamethoxazole/Trimethoprim [Bactrim Ds] 1 tab PO BID #28 tab 11/04/19 metroNIDAZOLE [Flagyl] 500 mg PO Q12H 14 Days #28 tab 11/04/19
[2019-11-04 17:36] VITALS: BP 104/53
== END 2019-11-04 17:38 | disposition home or self-care (01) ==
LOC: ER 16:51 → MS 21:25 → INTOOBSV 21:25 → MS 21:45
PROVIDERS: ADMIT Obstetrics & Gynecology; ATTEND Obstetrics & Gynecology
DX: E03.9 Hypothyroidism, unspecified; N99.840 Postprocedural hematoma of a genitourinary system organ or structure following a genitourinary system procedure; R53.83 Other fatigue
CPT/HCPCS: 36415; 74177; 80053; 81001; 83605; 84443; 85025; 86140; 87086; 96365; 96366; 96367; 96375; 99285; G0378; J2405; Q9963; Q9967